=== PATIENT | female | born 1995 | race Caucasian/White ===

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

== ENCOUNTER 2018-01-29 17:37 | Emergency (ER) | payer BC, OTHER ==
[~2018-01-29] VITALS: Ht 165.1 cm; Wt 61.2 kg
[~2018-01-29 17:37] MED LIST: BUPR200T2; LORA-404; NF-LAMO200; NORG1TAB30
--- OUTSIDE RECORDS SUMMARY | 2018-01-29 17:42 | XMS REPORT | Continuity of Care Document ---
Author Author [facility]. Organization [facility]. Address Unknown Phone Unavailable Allergies Active Description Code Type Severity Reaction Onset Reported/Identified Relationship to Patient Clinical Status Yes aripiprazole [id number] Drug Allergy Unknown EPS 09/23/2015 Yes cefprozil [id number] Drug Allergy Unknown N/A 09/23/2015 Yes Penicillins [id number] Drug Allergy Unknown N/A 09/23/2015 Yes quetiapine [id number] Drug Allergy Unknown N/A 09/23/2015 Medications There is no data. Problems Date Dx Coded Attending Type Code [...] 02/19/2015 Katlyn VICK, Dominic Castro 723.1 02/19/2015 oDminic Potts MD E939.3 04/09/2015 OTHER, PROVIDER A F31.32 09/23/2015 Gavin Arnett MD R21 RASH AND OTHER NONSPECIFIC SKIN ERUPTION 09/23/2015 Gavin Arnett MD T78.40XA ALLERGY, UNSPECIFIED, INITIAL ENCOUNTER Procedures There is no data. Results There is no data. Encounters ACCT No. Visit Date/Time Discharge Status Pt. Type Provider Facility Loc./Unit Complaint [id number] 09/23/2015 15:13:00 09/23/2015 15:46:00 DIS Emergency Gavin Arnett MD [facility]. COL.ER [id number] 03/24/2015 16:50:00 03/24/2015 23:59:59 CLS Outpatient OTHER, PROVIDER [facility]. COL.LAB [id number] 02/19/2015 02:02:00 02/19/2015 04:07:00 DIS Emergency Dominic Potts MD [facility]. COL.ER [id number] 10/02/2014 09:43:00 10/02/2014 23:59:59 CLS Outpatient OTHER, PROVIDER [facility]. COL.LAB [id number] 03/24/2015 16:51:40 ACT Document Registration
--- OUTSIDE RECORDS SUMMARY | 2018-01-29 17:42 | XMS REPORT | Clinical Summary ---
Author Author [facility] Organization [facility] Address Unknown Phone Unavailable Care Team Providers Care [employer] Hatcher[employer] Superintendent Name Role Phone Marianna Lozada DO PP Allergies Not on File Current Medications Not on file Active Problems Not on file Social History Tobacco Use Types Packs/Day Years Used Date Never Assessed Sex Assigned at Date Recorded Not on file Plan of Treatment Health Maintenance Due Date Last Done Comments HPV Vaccines (1 of 3 - 2008 Female 3-dose series) Varicella Vaccines (1 of 2010 2 - 2-dose adolescent series) MenB Vaccine (Bexsero) (1 2013 of 2) DTaP,Tdap,and Td Vaccines 2016 (1 - Tdap) Results Not on filefrom Last 3 Months
--- NOTE | 2018-01-29 18:47 | ED General ---
General Chief Complaint: Head/Cervical Problems Stated Complaint: ALLERGIC REACTION Nursing Triage Note: PT PRESENTS TO ED WITH THE COMPLAINTS OF R NECK STIFFNESS R/T POSSIBLE TORTICOLLIS. PT REPORTS SHE HAD A "DAB" OF THC MARIJUANA YESTERDAY BUT THINKS IT WAS TAINTED WITH SOMETHING. PT HAS HAD SIMILAR REACTIONS WHEN SHE HAS TAKEN ANTIPSYCOTICS. Nursing Sepsis Screen: No Definite Risk Source of Information: Patient History of Present Illness Date Seen by Provider: Jan 29, 2018 Time Seen by Provider: 18:20 Initial Comments PT ARRIVES VIA POV PT STATES "I'M HAVING AN ALLERGIC REACTION TO AN ANTI-PSYCHOTIC" PT STATES SHE HAS HAD TORTICOLLIS IN THE PAST WITH UNKNOWN ANTIPSYCHOTICS--MORE THAN ONE OCCASION BEGAN HAVING RIGHT NECK MUSCLE TIGHTNESS/SPASMS APPROXIMATELY 1 1/2 HOURS AGO, BUT NECK HAS BEEN SORE ALL DAY NO HEADACHE NO PARESTHESIAS OR MOTOR DEFICITS NO VISION CHANGES STATES SHE SMOKED "PURE THC THAT MUST HAVE BEEN LACED WITH SOMETHING" AROUND 2100 LAST PM STATES SHE IS "NOT ALLERGIC TO THC", HAS SMOKED IT MULTIPLE TIMES IN THE PAST, WITHOUT THIS PROBLEM ONLY TIME THIS HAS OCCURRED HAS BEEN WHEN SHE HAS TAKEN UNKNOWN ANTIPSYCHOTICS PT STATES SHE IS BIPOLAR AND TAKES LAMICTAL AND WELLBUTRIN, AND LORAZEPAM PRN, BUT HAS NOT TAKEN LORAZEPAM TODAY OR FOR SEVERAL DAYS. PT DRINKS ALCOHOL AT LEAST ONCE A WEEK, AND HAD "1 DRINK" LAST NIGHT. PT IS [employer] Allergies and Home Medications Allergies Coded Allergies: Penicillins (Unverified Allergy, Unknown, 10/10/17) rash cefprozil (Unverified Allergy, Unknown, 10/10/17) rash Uncoded Allergies: ANTIPSYCHOTICS (Allergy, Unknown, 01/29/18) Patient Home Medication List Home Medication List Reviewed: Yes Review of Systems Constitutional: no symptoms reported EENTM: no symptoms reported Respiratory: no symptoms reported Cardiovascular: no symptoms reported Gastrointestinal: no symptoms reported Genitourinary: no symptoms reported : No LMP: Dec 11, 2017 (TAKES SPRINTEC CONTINUOUS FOR 3 MONTHS) Musculoskeletal: see HPI Skin: no symptoms reported Psychiatric/Neurological: No Symptoms Reported Hematologic/Lymphatic: No Symptoms Reported Immunological/Allergic: no symptoms reported Past Yajtwvj-Gebhba-Gsnkjf Hx Patient Social History Alcohol Use: Regular Use Alcohol Beverage of Choice: Beer Recreational Drug Use: Yes (THC) Drug of Choice: MARIJUANA Smoking Status: Never a Smoker 2nd Hand Smoke Exposure: No Recent Foreign Travel: No Contact w/Someone Who Travel: No Recent Infectious Disease Expo: No Recent Hopitalizations: No Physical Abuse: No Sexual Abuse: No Mistreated: No Fear: No Past Medical History Surgeries: Yes Tonsillectomy Respiratory: No Cardiac: No Neurological: No Reproductive Disorders: No Genitourinary: No Gastrointestinal: No Musculoskeletal: Yes Scoliosis Endocrine: No HEENT: No Cancer: No Psychosocial: Yes Bipolar Nursing Suicide Risk Score: 0 Integumentary: No Blood Disorders: No Physical Exam Vital Signs Vital Signs - First Documented 01/29/18 17:54 Temp 95.7 Pulse 110 Resp 16 B/P (MAP) 149/96 (113) Pulse Ox 97 Capillary Refill : Less Than 3 Seconds Height, Weight, BMI Height: 5'5.00" Weight: 135lbs. oz. 61.093488yx; 21.09 BMI Method:Stated General Appearance: No Apparent Distress, WD/WN, Other (HOLDING HEAD SIDEBENT TO RIGHT) HEENT: PERRL/EOMI, TMs Normal, Pharynx Normal Neck: Limited Range of Motion, Other (HEAD SIDEBENT TO RIGHT. CERVICAL MUSCLE SPASMS ON RIGHT, WITH TENDERNESS TO CERVICAL PARAVERTEBRAL AND TRAPEZIUS MUSCLES --RIGHT > LEFT ) Respiratory: Normal Breath Sounds, No Accessory Muscle Use, No Respiratory Distress Cardiovascular: Regular Rate, Rhythm, No Edema, No Murmur, Normal Peripheral Pulses Back: Normal Inspection, No CVA Tenderness, No Vertebral Tenderness Extremity: Normal Capillary Refill, Normal Inspection, Normal Range of Motion, Non Tender, No Pedal Edema Neurologic/Psychiatric: Alert, Oriented x3, No Motor/Sensory Deficits, Normal Mood/Affect, fisher lampara net II-XII Norm as Tested Skin: Normal Color, Warm/Dry Progress/Results/Core Measures Suspected Sepsis Recent Fever Within 48 Hours: No Infection Criteria Present: None New/Unexplained Altered Menta: No Sepsis Screen: No Definite Risk SIRS Temperature:95.7 Pulse: 110 Respiratory Rate: 16 Blood Pressure 149 /96 Mean: 113 Results/Orders Lab Results Laboratory Tests Test 01/29/18 18:39 Range/Units Urine Opiates Screen NEGATIVE NEGATIVE Urine Oxycodone Screen NEGATIVE NEGATIVE Urine Methadone Screen NEGATIVE NEGATIVE Urine Propoxyphene Screen NEGATIVE NEGATIVE Urine Barbiturates Screen NEGATIVE NEGATIVE Ur Tricyclic Antidepressants Screen NEGATIVE NEGATIVE Urine Phencyclidine Screen NEGATIVE NEGATIVE Urine Amphetamines Screen NEGATIVE NEGATIVE Urine Methamphetamines Screen NEGATIVE NEGATIVE Urine Benzodiazepines Screen NEGATIVE NEGATIVE Urine Cocaine Screen NEGATIVE NEGATIVE Urine Cannabinoids Screen POSITIVE H NEGATIVE My Orders Orders - JACOB SHEPHERD DO Drug Screen Stat (Urine) (01/29/18 18:40) Hcg,Qualitative Serum (01/29/18 18:40) Urine Bedside (01/29/18 18:40) Diphenhydramine Injection (Benadryl Inje (01/29/18 19:30) Diazepam Injection (Valium Injection) (01/29/18 19:30) Medications Given in ED Current Medications Medications Dose Ordered Sig/Sahil Route Start Time Stop Time Status Last Admin Dose Admin Diazepam 5 mg ONCE ONCE IM 01/29/18 19:30 01/29/18 19:31 DC 01/29/18 20:16 5 MG Diphenhydramine HCl 50 mg ONCE ONCE IM 01/29/18 19:30 01/29/18 19:31 DC 01/29/18 20:15 50 MG Vital Signs/I&O 01/29/18 17:54 Temp 95.7 Pulse 110 Resp 16 B/P (MAP) 149/96 (113) Pulse Ox 97 Capillary Refill : Less Than 3 Seconds Blood Pressure Mean: 113 Progress Note : Progress Note SYMPTOMS RESOLVED WITH BENADRYL + VALIUM. Departure Impression Primary Impression: ACUTE TORTICOLLIS OF NECK Disposition: 01 HOME, SELF-CARE Condition: Improved Departure-Patient Inst. Referrals: [facility] (PCP/Family) Primary Care Physician Patient Instructions: Torticollis (DC) Add. Discharge Instructions: NO ILLEGAL DRUGS OF ANY KIND TAKE YOUR REGULAR MEDICATIONS PRESCRIBED FOLLOW UP WITH [facility] TOMORROW IF NO BETTER All discharge instructions reviewed with patient and/or family. Voiced understanding. JACOB SHEPHERD DO Jan 29, 2018 18:47
[2018-01-29 19:10] LABS: AMPHETAMINE SCREEN, URINE NEGATIVE (NEGATIVE); BARBITURATE SCREEN URINE NEGATIVE (NEGATIVE); BENZODIAZEPINES SCREEN URINE NEGATIVE (NEGATIVE); CANNABINOID SCREEN, URINE POSITIVE (NEGATIVE); COCAINE SCREEN URINE NEGATIVE (NEGATIVE); METHADONE STAT NEGATIVE (NEGATIVE); METHAMPHETAMINE SCREEN URINE S NEGATIVE (NEGATIVE); OPIATE SCREEN URINE NEGATIVE (NEGATIVE); OXYCODONE STAT NEGATIVE (NEGATIVE); PROPOXYPHENE STAT NEGATIVE (NEGATIVE); TRICYCLIC ANTIDEPRESSANTS SCRE NEGATIVE (NEGATIVE)
[2018-01-29] MEDS ORDERED: DIAZEPAM INJ 10 MG/2 ML (VALIUM) SYR IM ONE (19:30)
[2018-01-29] MEDS ORDERED: diphenhydrAMINE 50 MG/ML INJ (BENADRYL) IM ONE (19:30)
[2018-01-29 20:30] VITALS: BP 149/96
== END 2018-01-29 20:30 | disposition home or self-care (01) ==
LOC: EDUNIT# 17:37 → ER 17:38
DX: M43.6 Torticollis (principal); F31.9 Bipolar disorder, unspecified; F12.10 Cannabis abuse, uncomplicated; Z88.0 Allergy status to penicillin; Z88.1 Allergy status to other antibiotic agents; Z88.8 Allergy status to other drugs, medicaments and biological substances; Z90.89 Acquired absence of other organs
CPT/HCPCS: 80306; 84703; 99284